=== PATIENT | male | born 1995 | race African-American/Black ===

== ENCOUNTER 2019-01-12 20:26 | Emergency (ER) | payer SELFPAY | END 2019-01-12 20:45 | disposition left against medical advice (07) | LOC: EMS 20:26 | DX: Z53.21 Procedure and treatment not carried out due to patient leaving prior to being seen by health care provider (principal) ==

== ENCOUNTER 2019-01-12 21:17 | Emergency (ER) | payer SELFPAY ==
[~2019-01-12] VITALS: Ht 170.2 cm; Wt 88.6 kg
[2019-01-12 21:35] VITALS: BP 117/93
== END 2019-01-12 23:30 | disposition left against medical advice (07) ==
LOC: EMS 21:19
DX: T40.8X1A Poisoning by lysergide [LSD], accidental (unintentional), initial encounter (principal); Z53.21 Procedure and treatment not carried out due to patient leaving prior to being seen by health care provider